=== PATIENT | female | born 1965 | race Two or more races ===

== ENCOUNTER 2025-01-01 12:21 | Emergency (ER) | payer OTHER ==
[~2025-01-01] VITALS: Ht 165.1 cm; Wt 108.9 kg
[2025-01-01] MEDS ORDERED: KETOROLAC TROMET5 M1 OP (12:32)
[2025-01-01] MEDS ORDERED: AMOX-CLAV 875-1 EACH PO (12:32)
== END 2025-01-01 13:53 | disposition home or self-care (01) ==
LOC: ER 12:23
DX: N76.4 Abscess of vulva (principal); J45.909 Unspecified asthma, uncomplicated; I10 Essential (primary) hypertension; E11.9 Type 2 diabetes mellitus without complications